=== PATIENT | male | born 1995 | race Caucasian/White ===

== ENCOUNTER → 2017-01-22 | Outpatient (CLI) | payer SELFPAY ==
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
== END | disposition home or self-care (01) ==
LOC: CRAD 13:57
DX: M54.2 Cervicalgia (principal)
CPT/HCPCS: 72040